=== PATIENT | female | born 1985 | race Two or more races ===

== ENCOUNTER 2020-03-12 08:20 | Inpatient (IN) | payer BC, OTHER ==
--- OUTSIDE RECORDS SUMMARY | 2020-03-12 08:48 | XMS ---
:1985 Author Organization [facility] Support Name Relationship Address Phone UE, UNEMPLOYED Unavailable Unavailable Unavailable UE Unavailable Unavailable Unavailable MALKA MARTINEZ [address] [facility] [address] [address] [facility], [facility] Unavailable [address] [facility] [address] [facility] Unavailable [address] [phone] [place] [address] MALKA PASCAL [address] [facility] [address] [address] Re-disclosure Warning The records that you are about to access may contain information from federally- assisted alcohol or drug abuse programs. If such information is present, then the following federally mandated warning applies: This information has been disclosed to you from records protected by federal confidentiality rules (42 CFR part 2). The federal rules prohibit you from making any further disclosure of this information unless further disclosure is expressly permitted by the written consent of the person to whom it pertains or as otherwise permitted by 42 CFR part 2. A general authorization for the release of medical or other information is NOT sufficient for this purpose. The Federal rules restrict any use of the information to criminally investigate or prosecute any alcohol or drug abuse patient.The records that you are about to access may contain highly sensitive health information, the redisclosure of which is protected by Article 27-F of the [facility] Public Health law. If you continue you may haveaccess to information: Regarding HIV / AIDS; Provided by facilities licensed or operated by the [facility] Office of Mental Health; or Provided by the [facility] Office for People With Developmental Disabilities. If such information is present, then the following [facility] mandated warning applies: This information has been disclosed to you from confidential records which are protected by state law. State law prohibits you from making any further disclosure of this information without the specific written consent of the person to whom it pertains, or as otherwise permitted by law. Any unauthorized further disclosure in violation of state law may result in a fine or intermediate sentence or both. A general authorization for the release of medical or other information is NOT sufficient authorization for further disclosure. 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
[2020-03-12] MEDS ORDERED: ELECTROLYTE-148 SOLN 500 ML IV ONE ×2 (09:00→09:30)
[2020-03-12] MEDS ORDERED: CITRIC ACID/SODIUM CITRATE 30 ML UNIT-DOSE CUP PO ONE ×2 (09:00→11:24)
[2020-03-12 09:51] VITALS: BMI 46.0
--- NOTE | 2020-03-12 11:33 | HP ---
Past Medical History - Primary Care Physician PCP:: Robbie Kong E - Admission Chief Complaint: Term gestation for the c/section. History of Present Illness: Suspected macrosomia. Oblique lie. GDM controlled with diet. Term. surveillance studies WNL History Source: Medical Record, Caregiver Limitations to Obtaining History: No Limitations - Past Medical History HUMAN RESOURCES OFFICER: No: Alzheimer's, CVA, Dementia, Migraine, Multiple Sclerosis, Peripheral Neuropathy, Parkinson's, Seizure, Syncope, TIA, Vertigo, Other Cardiovascular: No: AFIB, Aneurysm, Aortic Insufficiency, Aortic Stenosis, CAD, CHF, Deep Vein Thrombosis, HTN, Hyperlipdemia, [place], Mitral Insufficiency, Mitral Stenosis, Murmur, Pulmonary Hypertension, Other Pulmonary: No: Asthma, Bronchitis, Cancer, COPD, O2 Dependent, Pneumonia, Previously Intubated, Pulmonary Embolus, Pulmonary Fibrosis, Sleep Apnea, Other Gastrointestinal: No: Ascites, Cancer, Constipation, Crohn's Disease, Diverticulitis, Diverticulosis, Esophageal Varices, Gastritis, GERD, GI Bleed, Hemorrhoids, Hiatal Hernia, Inflamatory Bowel Disease, Irritable Bowel Disease, Pancreatitis, Peptic Ulcer Disease, Ulcerative Colitis, Other Hepatobiliary: No: Cirrhosis, Cholelithiasis, Cholecystitis, Choledocholithiasis, Hepatitis A, Hepatitis B, Hepatitis C, Other Renal/: No: Renal Failure, Renal Inusuff, BPH, Cancer, Hematuria, Hemodialysis, Neurogenic Bladder, Renal Calculi, UTI, Other Reproductive: No: Ectopic , Endometriosis, Fibroids, PID, Polycystic Ovary Syndrome, Postmenopausal, Other ...: 2 ...Para: 0 ...Spon : 1 ...LMP: 06/12/19 ... Weeks Gestation by Dates: 39.1 ...EDC by Dates: 03/18/20 ...EDC by Sono: 03/19/20 Heme/Onc: No: Anemia, B12 Deficiency, Bleeding Disorder, Cancer, Current Chemotherapy, Current Radiation Therapy, Hemochromatosis, Hypercoaguable State, Myeloproliferative Synd, Sickle Cell Disease, Sickle Cell Trait, Thrombocytopenia, Other Infectious Disease: No: AIDS, C-Diff, Herpes Zoster, HIV, MRSA, STD's, Tuberculosis, VREF, Other Psych: No: Addictions, Anxiety, Bipolar, Depression, Panic, Psychosis, Schizophrenia, Other Musculoskeletal: No: Bursitis, Chronic low back pain, Hemiparesis, Hemiplegia, Osteoarthritis, Paraplegia, Other Rheumatology: No: Fibromyalgia, Gout, Lupus, Rheumatoid Arthritis, Sarcoidosis, Vasculitis, Other ENT: No: Allergic Rhinitis, Sinusitis, Other Endocrine: No: Aredale's Disease, Labolt's Disease, Diabetes Insipidus, Diabetes Mellitus (GDM), Hyperparathyroidism, Hyperthyroidism, Hypothyroidism, Osteopenia, SIADH, Other - Past Surgical History Past Surgical History: Yes: None Hx Myomectomy: No Hx Transabdominal Cerclage: No - Smoking History Smoking history: Never smoked - Alcohol/Substance Use Hx Alcohol Use: No Home Medications - Allergies Allergies/Adverse Reactions: Allergies Allergy/AdvReac Type Severity Reaction Status Date / Time Penicillins Allergy Severe Difficulty Verified 03/12/20 09:30 Breathing shellfish derived Allergy Severe Difficulty Verified 03/12/20 09:32 Breathing tree nut Allergy Severe Rash Verified 03/12/20 09:32 wheat Allergy Severe Rash Verified 03/12/20 09:31 Family Medical History Family History: Unremarkable Review of Systems - Review of Systems Constitutional: reports: No Symptoms Eyes: reports: No Symptoms HENT: reports: No Symptoms Neck: reports: No Symptoms Cardiovascular: reports: No Symptoms Respiratory: reports: No Symptoms Gastrointestinal: reports: No Symptoms Genitourinary: reports: No Symptoms Breasts: reports: No Symptoms Reported Musculoskeletal: reports: No Symptoms Integumentary: reports: No Symptoms Neurological: reports: No Symptoms Endocrine: reports: No Symptoms Hematology/Lymphatic: reports: No Symptoms Psychiatric: reports: No Symptoms Physical Exam - Maternity Vital Signs: Vital Signs Temperature 98.2 F 03/12/20 11:00 Pulse Rate 83 03/12/20 11:00 Respiratory Rate 20 03/12/20 11:00 Blood Pressure 116/79 03/12/20 11:00 O2 Sat by Pulse Oximetry (%) Constitutional: Yes: Well Nourished, No Distress, Calm Eyes: Yes: WNL, Conjunctiva Clear, EOM Intact HENT: Yes: WNL, Atraumatic, Normocephalic Neck: Yes: WNL, Supple, Trachea Midline Cardiovascular: Yes: WNL, Regular Rate and Rhythm Breast(s): Yes: WNL - Abdominal Exam/OB Fundal Height: 44 Number of Fetuses: Single Presentation: Oblique Contractions: No Monitor Mode: External Heart Rate (range): 140 Heart Rate Location: [facility] Category: I Accelerations: Uniform Decelerations: None - Vaginal Exam/OB Vaginal Bleeding: No Dilatation (cm): 0 Effacement (%): 0 Station: -4 - Physical Exam Musculoskeletal: Yes: WNL Extremities: Yes: WNL Integumentary: Yes: WNL Psychiatric: Yes: WNL Hemorrhage Risk Assessment - Risk Factors Medium Risk Factors: Yes: Prior , uterine surgery,or multiple laparotomies Risk Score: 1 Risk Level: Medium Risk Problem List - Problems (1) Term Code(s): Z34.90 - ENCNTR FOR SUPRVSN OF NORMAL , UNSP, UNSP TRIMESTER (2) Oblique lie Code(s): O32.2XX0 - MATERNAL CARE FOR TRANSVERSE AND OBLIQUE LIE, UNSP (3) Macrosomia Code(s): P08.0 - EXCEPTIONALLY LARGE BABY (4) GDM (gestational diabetes mellitus) Code(s): O24.419 - GESTATIONAL DIABETES MELLITUS IN , UNSP CONTROL Assessment/Plan Admited for elective primary c/section. All explained. Aware of alternatives. Pt. understands all risks, possible complications and consents to the procedure.
[2020-03-12] MEDS ORDERED: morphine SULFATE/PF 0.5 MG/ML (2cc Syringe - QUVA) ONE (12:13)
[2020-03-12] MEDS ORDERED: CLINDAMYCIN PHOSPHATE 600 MG/4 ML VIAL ONE ×2 (12:13→12:31)
[2020-03-12] MEDS ORDERED: OXYTOCIN 20 UNITS in 0.9% NS 20 UNIT/1,000 ML INFUS.BAG IV ONE (12:13)
[2020-03-12] MEDS ORDERED: GENTAMICIN SO4 80 MG/2 ML VIAL ONE (12:15)
[2020-03-12] MEDS ORDERED: ePHEDrine SULFATE 50 MG/1 ML AMPULE ONE (12:16)
[2020-03-12] MEDS ORDERED: OXYTOCIN 10 UNITS/ML VIAL ONE (12:46)
[2020-03-12] MEDS ORDERED: oxyCODONE HCL 5 MG TABLET PO PRN (14:05)
[2020-03-12] MEDS ORDERED: ONDANSETRON 4 MG/2 ML VIAL IVPUSH PRN (14:05)
[2020-03-12] MEDS ORDERED: morphine SULFATE/PF 0.5 MG/ML (2cc Syringe - QUVA) EP ONE (14:06)
[2020-03-12] MEDS: OXYTOCIN 20 UNITS in 0.9% NS 20 UNIT/1,000 ML INFUS.BAG IV SCH (14:30)
--- NOTE | 2020-03-12 14:53 | OP ---
Operative Note - Note: Operative Date: 03/12/20 Pre-Operative Diagnosis: Oblique lie; GDM; obesity; macrosomia? 39+ weeks. Rt ovarian benign teratoma. Operation: Primary, transverse, low segment c/section. Resection of teratoma and repair of the ovary. Post-Operative Diagnosis: Same as Pre-op Surgeon: Robbie Kong Liquid Compounder: Dayo Salazar Anesthesiologist/ROLLER CHECKER: Brianda West Anesthesia: Spinal Estimated Blood Loss (mls): 600 Operative Report Dictated: Yes
[2020-03-12] MEDS ORDERED: SENNOSIDES/DOCUSATE COMBO (SENNA PLUS) TABLET (UD) PO PRN (14:57)
[2020-03-12] MEDS ORDERED: ACETAMINOPHEN 325 MG TABLET (FP) PO PRN (14:57)
[2020-03-12] MEDS ORDERED: ACETAMINOPHEN 1000 MG/100 ML VIAL (NON FORMULARY) IVPB PRN (14:57)
[2020-03-12] MEDS ORDERED: WITCH HAZEL 50% (TUCKS) 40 PAD/JAR PAD TP PRN (14:57)
--- NOTE | 2020-03-12 14:57 | SURG ---
Surgery Manager Social Responsibility Note Manager Social Responsibility: Dayo Salazar PA-C Date of Service: 03/12/20 Diagnosis: Oblique lie; GDM; obesity; macrosomia? 39+ weeks. Rt ovarian benign teratoma. Procedure: Primary, transverse, low segment c/section. Resection of teratoma and repair of the ovary. I was present for the entirety of the operative procedure. For further detail, please refer to operative report. Visit type - Case Type Case Type: Scheduled - New patient This patient is new to me today: Yes Date on this admission: 03/12/20
[2020-03-12] MEDS: LACTATED RINGERS SOLUTION 1,000 ML IV SCH (18:08)
--- NOTE | 2020-03-12 20:15 | OP ---
DATE OF OPERATION: 03/12/2020 PREOPERATIVE DIAGNOSIS: 1. Intrauterine 39 plus weeks of gestation. 2. Oblique lie. 3. Gestational diabetes mellitus, obesity. Suspected macrosomia. 4. Right ovarian benign teratoma. POSTOPERATIVE DIAGNOSIS: 1. Intrauterine 39 plus weeks of gestation. 2. Oblique lie. 3. Gestational diabetes mellitus, obesity. Suspected macrosomia. 4. Right ovarian benign teratoma. OPERATION: 1. Primary transverse low segment section. 2. Resection of right-sided keratoma and repair of the ovary. SURGEON: Lui Borrero MD. SERVICE ATTENDANT: LINDA Moise. ANESTHESIA: Spinal. ANESTHESIOLOGIST: Brianda West MD. DESCRIPTION OF PROCEDURE: Under excellent spinal block, patient was placed in dorsal supine position with left lateral tilt. Abdomen was prepped and draped in a normal fashion. Pfannenstiel incision was placed and carried transversely through subcutaneous tissue and fascia. Fascia was dissected off the rectus muscles that were divided in the midline. Peritoneum was entered sharply in the superior part of the incision. Peritoneal incision was extended vertically. Term uterus was noticed. Subsequently, left adnexum was completely within normal limits and right adnexum was characteristic for about 5-6 cm cystic structure. Right fallopian tube was normal. No other pathology was noted. Bladder flap was incised and peeled off the lower uterine segment. Hysterotomy was performed transversely and extended with bandage scissors. Clear amniotic fluid was noted upon entry. Female live was delivered with cord around the neck x1, tight. Baby cried and breathed spontaneously. Umbilical cord was divided with delay, and baby was handed over to the team. She was given Apgars 9 and 9, and the weight was 8 pounds and 2 ounces. Placenta was removed and uterine cavity was cleaned. Internal os was dilated with sponge stick. Hysterotomy was then closed with continuous running interlocking Biosyn 0 suture. Easy to achieve perfect hemostasis. Attention was then focused on the right ovary. Ovary was wrapped with moist lap pads in case of spillage. Capsule was gently incised. Using a hemostat, capsule was undermined, incision was extended and slowly and carefully large dermoid cyst was enucleated. Base of the cyst was clamped with the hemostat and specimen was excised. As I said, it was completely intact and sent for the pathology assessment in toto. Ovary was inspected and hemostasis was achieved. Base of the cyst was closed with interrupted [id number] 2-0 Biosyn sutures. Ovary was closed with edges approximated with continuous running 2-0 Biosyn baseball suture. Ovary looked great upon completion, and there was no bleeding. Uterus and adnexa were then placed anatomically in the pelvis. Thorough lavage was carried out. Hemostasis was rechecked, and it was excellent. Sponge, instrument, and needle count was correct. Abdomen was closed in layers. Peritoneum was closed with continuous running Biosyn 2-0 suture, fascia with continuous running Vicryl 1 suture, subcutaneous tissue with interrupted 3-0 Vicryl sutures, and skin was approximated with continuous running subcuticular V-Loc 3- 0 sutures. Steri-Strips were applied. Sterile dressing was applied and held with a binder. Urine was clear in the Coffman catheter bag and copious. Blood loss was 600 mL. There was no complication during the procedure. Patient was transferred to the PACU stable and comfortable. LUI BORRERO MD [id number] MTDD
[2020-03-12] MEDS: FERROUS SO4 325 MG TABLET (FP) PO SCH (21:49)
[2020-03-13] MEDS: ACETAMINOPHEN 325 MG TABLET (FP) PO PRN ×4 (02:08→21:51)
[2020-03-13] MEDS: IBUPROFEN 600 MG TABLET (FP) PO PRN ×4 (02:09→21:51)
[2020-03-13] MEDS: SIMETHICONE 80 MG TAB.CHEW (FP) PO PRN ×2 (02:10→21:52)
--- NOTE | 2020-03-13 07:55 | PN ---
Progress Note (short form) - Note Progress Note: 34yo F s/p . Pt seen and examined at bedside. Pt states that abd pain is controlled, pt had some issues with nause/vomiting yesterday, but has since improved. Denies fever, chills, n/v. Urinating and ambulating well. Last Vital Signs Temp Pulse Resp BP Pulse Ox 98.3 F 76 18 96/64 100 03/13/20 06:00 03/13/20 06:00 03/13/20 06:00 03/13/20 06:00 03/12/20 22:00 PE: Gen: A&O X3 Resp: breathing comfortably Abd: soft, nondistended, mild lower abd tenderness, incision clean with no erythema or discharge. Ext: no edema Problem List - Problems (1) Previous delivery, delivered Assessment/Plan: Plan -pt appears to be doing well -oob/ambulate -regular diet -pain control Pt discussed with Dr. Jasso who agrees with plan.
[2020-03-13 08:15] LABS: BASO % 0.3 % (0-2.0); EOS % 0.5 % (0-4.5); HEMATOCRIT 33.5 % (32.4-45.2); LYMPH % 12.2 % (8-40); MCH 24.7 pg (25.7-33.7); MCHC 32.7 g/dl (32.0-36.0); MEAN CELL VOLUME 75.5 fl (80-96); MONO % 4.3 % (3.8-10.2); NEUT % 82.7 % (42.8-82.8); PLATELET COUNT 163 K/MM3 (134-434); RBC 4.44 M/mm3 (3.60-5.2); RDW 16.8 % (11.6-15.6); WHITE BLOOD COUNT 13.8 K/mm3 (4.0-10.0)
[2020-03-13] MEDS: FERROUS SO4 325 MG TABLET (FP) PO SCH ×2 (09:13→21:51)
[2020-03-13] MEDS ORDERED: PNEUMOC 13-VAL CONJ-DIP CRM/PF 0.5 ML DISP.SYRIN IM ONE (10:00)
--- NOTE | 2020-03-13 10:19 | PN ---
Progress Note (short form) - Note Progress Note: Anesthesiology post op check Post op day one s/p c section under spinal anesthesia with duramorph for post op pain control. Patient doing well, pain this morning treated the analgesics, itching controlled, no other adverse effect of anesthetic, dept of anesthesiology will sign off care at this time.
[2020-03-13] MEDS ORDERED: PNEUMOCOCCAL 23 VACCINE 0.5 ML VIAL IM ONE (10:30)
[2020-03-13] MEDS ORDERED: BISACODYL 10 MG SUPP.RECT RC PRN (14:58)
[2020-03-13] MEDS: OXYTOCIN 20 UNITS in 0.9% NS 20 UNIT/1,000 ML INFUS.BAG IV SCH (17:00)
[2020-03-13] MEDS: LACTATED RINGERS SOLUTION 1,000 ML IV SCH (17:00)
--- NOTE | 2020-03-14 08:02 | DS ---
Physical Exam: SUBJECTIVE: Patient seen and examined OBJECTIVE: Vital Signs Temperature 98.5 F 03/13/20 22:00 Pulse Rate 73 03/13/20 22:00 Respiratory Rate 18 03/13/20 22:00 Blood Pressure 113/75 03/13/20 22:00 O2 Sat by Pulse Oximetry (%) 99 03/13/20 22:00 PHYSICAL EXAM GENERAL: The patient is awake, alert, and fully oriented, in no acute distress. HEAD: Normal with no signs of trauma. EYES: PERRL, extraocular movements intact, sclera anicteric, conjunctiva clear. ENT: Ears normal, nares patent, oropharynx clear without exudates, moist mucous membranes. NECK: Trachea midline, full range of motion, supple. LUNGS: Breath sounds equal, clear to auscultation bilaterally, no wheezes, no crackles, no accessory muscle use. HEART: Regular rate and rhythm, S1, S2 without murmur, rub or gallop. ABDOMEN: Soft, nontender, nondistended, normoactive bowel sounds, no guarding, no rebound, no hepatosplenomegaly, no masses. EXTREMITIES: 2+ pulses, warm, well-perfused, no edema. NEUROLOGICAL: Cranial nerves II through XII grossly intact. Normal speech, gait not observed. PSYCH: Normal mood, normal affect. SKIN: Warm, dry, normal turgor, no rashes or lesions noted. LABS CBC,CMP WBC 13.8 K/mm3 (4.0-10.0) H 03/13/20 07:49 RBC 4.44 M/mm3 (3.60-5.2) 03/13/20 07:49 Hgb 11.0 GM/dL (10.7-15.3) 03/13/20 07:49 Hct 33.5 % (32.4-45.2) 03/13/20 07:49 MCV 75.5 fl (80-96) L 03/13/20 07:49 MCH 24.7 pg (25.7-33.7) L 03/13/20 07:49 MCHC 32.7 g/dl (32.0-36.0) 03/13/20 07:49 RDW 16.8 % (11.6-15.6) H 03/13/20 07:49 Plt Count 163 K/MM3 (134-434) 03/13/20 07:49 MPV 8.0 fl (7.5-11.1) 03/13/20 07:49 Absolute Neuts (auto) 11.4 K/mm3 (1.5-8.0) H 03/13/20 07:49 Neutrophils % 82.7 % (42.8-82.8) D 03/13/20 07:49 Lymphocytes % 12.2 % (8-40) D 03/13/20 07:49 Monocytes % 4.3 % (3.8-10.2) 03/13/20 07:49 Eosinophils % 0.5 % (0-4.5) 03/13/20 07:49 Basophils % 0.3 % (0-2.0) 03/13/20 07:49 Nucleated RBC % 0 % (0-0) 03/13/20 07:49 POC Glucometer 78 UNITS (80-120) 03/12/20 19:28 HOSPITAL COURSE: Date of Admission:03/12/20 Date of Discharge: 03/14/20 The patient was admitted to the L&D Unit after an elective section and right dermoid cyst 02/10. Pain management was achieved with a narcotic and non-narcotic oral and IV singh men. POD #1, the patient passed flatus and diet was advanced. Hemoglobin and hematocrit were monitored as well as vitals and remained stable throughout admission. DVT prophylaxis was achieved with SCDs and early ambulation. The patient ambulated the halls without issue. Narcotic scripts were checked with MIS WILDLIFE BIOLOGIST prior to escribe. The discharge instructions and an oral pain management plan were reviewed with the patient. All questions answered. Above plan discussed with Dr. Jasso (covering for Dr. Kong) and agreed. Minutes to complete discharge: 35 Visit type - Case Type Case Type: Scheduled
[2020-03-14] MEDS: ACETAMINOPHEN 325 MG TABLET (FP) PO PRN (08:30)
[2020-03-14] MEDS: IBUPROFEN 600 MG TABLET (FP) PO PRN (08:30)
[2020-03-14 09:50] VITALS: BP 135/77; PULSE 86; TEMP 98.3
[2020-03-14] MEDS: FERROUS SO4 325 MG TABLET (FP) PO SCH (10:36)
--- NOTE | 2020-03-20 13:01 | PATH ---
Surgical Pathology Report Patient Name: FREDDIE PASCAL [facility]. Rec. #: [id number] /Age/Gender: 1985 (Age: 34) / F Account: [id number] Location: [facility] OBS/BATON TWIRLER Taken: 03/12/2020 Received: 03/13/2020 Reported: 03/20/2020 Physicians: Robbie Kong MD Specimen(s) Received A: PLACENTA B: DERMOID CYST FROM OVARY Clinical History , primary for oblique lie. Final Diagnosis A. PLACENTA: THIRD TRIMESTER PLACENTA. TRIVASCULAR CORD. MEMBRANES WITH NO DIAGNOSTIC ABNORMALITIES. B. DERMOID CYST FROM OVARY, CYSTECTOMY: MATURE CYSTIC TERATOMA (DERMOID CYST). Note: Operative report has been reviewed. Electronically Signed Polly Sanz M.D. Gross Description A. The specimen is received fresh labeled placenta and is a 623 gram, 22.5 x 18.0 x 2.8 cm. placenta with attached membranes and umbilical cord. The attached membranes are vela, translucent with focal opacities and insert marginally. The umbilical cord measures 36 cm. in length and averages 0.9 cm. in diameter. The cord inserts eccentrically, 5.5 cm. to the nearest margin. No true knots or strictures are identified. Cut surface of the umbilical cord reveals 3 vessels. The surface is garcia-blue with minimal fibrin deposition and appropriate caliber vessels. The maternal surface is red-brown with focal defects. Sectioning reveals red-brown, spongy parenchyma. No lesions are identified. Integrity Engineer sections are submitted in three cassettes as follows: 1- membrane rolls and umbilical cord; 2-3- full thickness sections of placenta. B. Received in formalin labeled "dermoid cyst from ovary," is a 5.0 x 3.8 x 3.1 cm intact cystic structure. There is no fallopian tube present. The outer surface is vela garcia and smooth. The lumen contains vela sebaceous material and hair. The inner lining displays focal hard tissue. Integrity Engineer sections are submitted in 4 cassettes with cassette #1 following decalcification. /03/18/2020 saudi03/18/2020
== END 2020-03-14 13:40 | disposition home or self-care (01) | DRG 788 ==
LOC: JLDR 08:20 → J3W 15:57
PROVIDERS: ADMIT Specialist; ATTEND Specialist
PROC: 10D00Z1 Extraction of Products of Conception, Low, Open Approach (ICD-10-PCS; principal; 2020-03-12)
PROC: 0UB00ZZ Excision of Right Ovary, Open Approach (ICD-10-PCS; 2020-03-12)
DX: O82 Encounter for cesarean delivery without indication (principal); O24.420 Gestational diabetes mellitus in childbirth, diet controlled; O36.63X0 Maternal care for excessive fetal growth, third trimester, not applicable or unspecified; O32.2XX0 Maternal care for transverse and oblique lie, not applicable or unspecified; D27.0 Benign neoplasm of right ovary; O99.214 Obesity complicating childbirth; E66.01 Morbid (severe) obesity due to excess calories; Z3A.39 39 weeks gestation of pregnancy; Z37.0 Single live birth; Z88.0 Allergy status to penicillin; Z91.013 Allergy to seafood; Z91.018 Allergy to other foods
CPT/HCPCS: 36415; 82962; 85025; 88307-TC; 90732; G0009; J0131

== ENCOUNTER 2022-02-23 06:00 | Inpatient (IN) | payer BC, OTHER ==
[~2022-02-23 06:00] MED LIST: ELECTROLYTE-148 SOLN 500 ML IV ONE
[2022-02-23 07:01] VITALS: BMI 44.9
[2022-02-23] MEDS ORDERED: CITRIC ACID/SODIUM CITRATE 30 ML UNIT-DOSE CUP PO ONE (07:15)
[2022-02-23] MEDS ORDERED: ELECTROLYTE-148 SOLN 1,000 ML IV SCH (07:30)
[2022-02-23] MEDS ORDERED: morphine SULFATE/PF 1 MG/2 ML (2cc Syringe - QUVA) ONE (10:15)
[2022-02-23] MEDS ORDERED: morphine SULFATE/PF 1 MG/2 ML (2cc Syringe - QUVA) IT ONE (10:20)
[2022-02-23] MEDS ORDERED: ceFAZolin SODIUM 1 GM VIAL ONE (10:28)
[2022-02-23] MEDS ORDERED: PHENYLEPHRINE HCL 10 MG/1 ML SINGLE DOSE VIAL ONE (10:29)
[2022-02-23] MEDS ORDERED: ONDANSETRON 4 MG/2 ML VIAL ONE (10:32)
[2022-02-23] MEDS ORDERED: OXYTOCIN 10 UNITS/ML VIAL ONE (10:37)
[2022-02-23] MEDS ORDERED: KETOROLAC TROMETHAMINE 30 MG/1 ML VIAL ONE (10:55)
[2022-02-23] MEDS ORDERED: METHYLERGONOVINE MALEATE 0.2 MG/1 ML AMP IM PRN (11:16)
[2022-02-23] MEDS: OXYTOCIN 20 UNITS in 0.9% NS 20 UNIT/1,000 ML INFUS.BAG IV SCH ×2 (11:25→19:15)
[2022-02-23] MEDS ORDERED: ONDANSETRON 4 MG/2 ML VIAL IVPUSH PRN (11:51)
[2022-02-23] MEDS ORDERED: OXYTOCIN 20 UNITS in 0.9% NS 20 UNIT/1,000 ML INFUS.BAG IV ONE (13:27)
[2022-02-23] MEDS: CEFAZOLIN 1 GM in DEXTROSE 5%-WATER - 50 ML IVPB SCH (18:06)
[2022-02-23] MEDS: SIMETHICONE 80 MG TAB.CHEW (FP) PO PRN (19:22)
[2022-02-23] MEDS: IBUPROFEN 600 MG TABLET (FP) PO PRN (19:22)
[2022-02-23] MEDS ORDERED: oxyCODONE HCL 5 MG TABLET PO PRN (23:17)
[2022-02-24] MEDS: SIMETHICONE 80 MG TAB.CHEW (FP) PO PRN ×4 (00:01→20:36)
[2022-02-24] MEDS: ACETAMINOPHEN 325 MG TABLET (FP) PO PRN ×2 (00:01→23:44)
[2022-02-24] MEDS: CEFAZOLIN 1 GM in DEXTROSE 5%-WATER - 50 ML IVPB SCH ×2 (01:00→10:55)
[2022-02-24] MEDS: IBUPROFEN 600 MG TABLET (FP) PO PRN (06:17)
[2022-02-24 09:13] LABS: BASO % 0.5 % (0-2.0); HEMATOCRIT 34.7 % (32.4-45.2); HEMOGLOBIN 11.4 GM/dL (10.7-15.3); LYMPH % 11.2 % (8-40); MCH 24.8 pg (25.7-33.7); MEAN CELL VOLUME 75.2 fl (80-96); MEAN PLT VOLUME 7.3 fl (7.5-11.1); MONO % 3.3 % (3.8-10.2); PLATELET COUNT 188 10^3/uL (134-434); RBC 4.62 M/mm3 (3.60-5.2); RDW 15.2 % (11.6-15.6); WHITE BLOOD COUNT 10.5 K/mm3 (4.0-10.0)
[2022-02-24] MEDS ORDERED: IBUPROFEN 800 MG/8 ML IJ IVPB PRN (09:25)
[2022-02-24 09:26] LABS: CALCIUM 8.3 mg/dL (8.5-10.1)
[2022-02-24] MEDS ORDERED: ACETAMINOPHEN 1000 MG/100 ML BAG IVPB PRN (09:26)
[2022-02-24 09:27] LABS: ALBUMIN 2.5 g/dl (3.4-5.0); BLOOD UREA NITROGEN 5.7 mg/dL (7-18)
[2022-02-24 09:30] LABS: CREATININE 0.7 mg/dL (0.55-1.3)
[2022-02-24 09:31] LABS: BILIRUBIN,TOTAL 0.5 mg/dL (0.2-1); TOT PROT 5.9 g/dl (6.4-8.2)
[2022-02-24] MEDS: ENOXAPARIN NA (PORCINE) 40 MG/0.4 ML DISP.SYRIN SQ SCH (09:40)
[2022-02-24] MEDS ORDERED: BISACODYL 10 MG SUPP.RECT RC PRN (11:17)
[2022-02-25] MEDS: ENOXAPARIN NA (PORCINE) 40 MG/0.4 ML DISP.SYRIN SQ SCH (10:30)
[2022-02-25] MEDS: SIMETHICONE 80 MG TAB.CHEW (FP) PO PRN (10:50)
[2022-02-25] MEDS: IBUPROFEN 600 MG TABLET (FP) PO PRN (10:50)
[2022-02-25 11:30] VITALS: BP 102/64; PULSE 62; RESP 16; TEMP 98
== END 2022-02-25 14:00 | disposition home or self-care (01) | DRG 788 ==
LOC: JLDR 06:00 → J3W 13:30
PROVIDERS: ADMIT Specialist; ATTEND Specialist
PROC: 10D00Z1 Extraction of Products of Conception, Low, Open Approach (ICD-10-PCS; principal; 2022-02-23)
DX: O34.219 Maternal care for unspecified type scar from previous cesarean delivery (principal); O24.424 Gestational diabetes mellitus in childbirth, insulin controlled; Z37.0 Single live birth; O99.214 Obesity complicating childbirth; Z3A.38 38 weeks gestation of pregnancy
CPT/HCPCS: 36415; 80053; 82962; 85025; 88307-TC